=== PATIENT | female | born 1980 | race Caucasian/White ===

== ENCOUNTER 2017-10-30 09:57 | Emergency (ER) | payer BC, MEDICAID ==
[~2017-10-30] VITALS: Ht 154.9 cm; Wt 510.3 kg
[2017-10-30 10:30] VITALS: BP_SYST 111
[2017-10-30 13:39] VITALS: BP_SYST 112
== END 2017-10-30 13:39 | disposition home or self-care (01) ==
LOC: SED 09:57
DX: J11.1 Influenza due to unidentified influenza virus with other respiratory manifestations (principal)
CPT/HCPCS: 36415; 86710; 99284

== ENCOUNTER 2019-01-16 13:47 | Emergency (ER) | payer MEDICAID ==
[~2019-01-16] VITALS: Ht 154.9 cm; Wt 54.4 kg
[2019-01-16 13:50] VITALS: BP_SYST 131
--- NOTE | 2019-01-16 13:50 | NUR ---
Patient triaged and placed in waiting room. VSS and patient appears in no acute distress at this time. Accompanied by SON, awaiting available bed, and MD notified of need for MSE.
--- NOTE | 2019-01-16 14:42 | NUR ---
BROUGHT BACK TO BED #7 AND REPORT GIVEN TO MICHELE
--- NOTE | 2019-01-16 14:46 | NUR ---
Patient arrived accompanied by son. Patient AAOx4, and ambulatory with steady gait. C/C of body aches, chest congestion, cough. Patient states no fever, chills, nausea, vomiting. Will continue to follow up and monitor.
--- NOTE | 2019-01-16 14:49 | NUR ---
DR LEVINE AT BEDSIDE FOR EVLAUATION
[2019-01-16 15:32] VITALS: BP_SYST 131
--- NOTE | 2019-01-16 15:32 | NUR ---
Patient given written and verbal discharge instructions and verbalizes understanding. ER MD discussed with patient the results and treatment provided. Patient in stable condition. ID arm band removed. Rx of Albuterol and Augmentin given. Patient educated on pain management and to follow up with PMD. Pain Scale 0/10. Opportunity for questions provided and answered. Medication side effect fact sheet provided.
== END 2019-01-16 15:32 | disposition home or self-care (01) ==
LOC: SED 13:47
DX: J40 Bronchitis, not specified as acute or chronic (principal); J02.9 Acute pharyngitis, unspecified; R03.0 Elevated blood-pressure reading, without diagnosis of hypertension
CPT/HCPCS: 71046-TC; 99283

== ENCOUNTER 2019-09-03 19:32 | Emergency (ER) | payer MEDICAID ==
[~2019-09-03] VITALS: Ht 152.4 cm; Wt 52.2 kg
[2019-09-03 19:43] VITALS: BP_SYST 120
--- NOTE | 2019-09-03 21:40 | NUR ---
Patient AAOx4. Patient complaines of back pain on right upper lateral back since 08/31. 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 Pain is non-radiating. Per patient no trauma. Patient states that she took 2000 mg of Tylenol at 0700 with no relief. Patient denies fever, nausea, and vomiting. No other injuries/complaints per patient or noted.
--- NOTE | 2019-09-03 22:05 | NUR ---
ER Dr. Corral at bedside examining patient.
[2019-09-03] MEDS ORDERED: KETOROLAC TROMETHAMINE 30 MG VIAL IM ONE (22:15)
--- NOTE | 2019-09-03 23:53 | NUR ---
ER Dr. Corral at bedside explaining results to patient.
[2019-09-04] MEDS ORDERED: METHOCARBAMOL 500 MG TABLET PO ONE
[2019-09-04 00:15] VITALS: BP_SYST 122
--- NOTE | 2019-09-04 00:15 | NUR ---
Patient given written and verbal discharge instructions and verbalizes understanding. ER MD discussed with patient the results and treatment provided. Patient in stable condition. ID arm band removed. Rx of Methocarbamol and Ibuprofen given. Patient educated on pain management and to follow up with PMD. Pain Scale 0. Opportunity for questions provided and answered. Medication side effect fact sheet provided.
== END 2019-09-04 00:15 | disposition home or self-care (01) ==
LOC: SED 19:32
DX: S29.012A Strain of muscle and tendon of back wall of thorax, initial encounter (principal); S39.012A Strain of muscle, fascia and tendon of lower back, initial encounter; X50.0XXA Overexertion from strenuous movement or load, initial encounter; Y93.89 Activity, other specified; Y92.89 Other specified places as the place of occurrence of the external cause; Y99.8 Other external cause status
CPT/HCPCS: 72072; 72100; 81025; 96372; 99283; J1885